=== PATIENT | female | born 1980 | race Caucasian/White ===

== ENCOUNTER 2019-07-16 08:40 | Inpatient (IN) | payer SELFPAY ==
[2019-07-16] VITALS (10 sets, daily range): BP systolic 113–129; BP diastolic 81–91; PULSE 70–105; RESP 16–20; TEMP 36.5–37.1; O2SAT 96–100; BMI 24.7
--- NOTE | 2019-07-16 09:25 | US_ITS ---
WS: [id number] Pelvic ultrasound, 07/16/2019 Clinical Data: pelvic pain Comparison: None. Findings: The uterus measures 8.0 cm x 4.5 cm x 3.7 cm. The endometrium is 0.7 cm. No intrauterine or abnormal intrauterine mass is seen. The left ovary measures 2.2 cm x 1.5 cm x 1.6 cm with no cysts or masses. The right ovary measures 2.3 cm x 1.2 cm x 1.3 cm with no cysts or masses. US/US pelvic with transvaginal Impression: Negative pelvic ultrasound.
--- NOTE | 2019-07-16 09:28 | CTR_ITS ---
PROCEDURE INFORMATION: Exam: CT Abdomen And Pelvis With Contrast Exam date and time: 07/16/2019 9:31 AM Age: 38 years old Clinical indication: Right lower quadrant pain TECHNIQUE: Imaging protocol: Computed tomography of the abdomen and pelvis with intravenous contrast. Radiation optimization: All CT scans at this facility use at least one of these dose optimization techniques: automated exposure control; mA and/or kV adjustment per patient size (includes targeted exams where dose is matched to clinical indication); or iterative reconstruction. Contrast material: OMNI 300; Contrast volume: 95 ml; Contrast route: 20G; COMPARISON: US pelvic with transvaginal 07/16/2019 10:00 AM RADIATION DOSE METRICS: Total DLP: 585.94 mGy-cm FINDINGS: Lungs: Minimal bilateral dependent atelectasis. Liver: There is fatty change involving the liver parenchyma. Gallbladder and bile ducts: The gallbladder is contracted. No calcified gallstones. No biliary ductal dilatation. Pancreas: No pancreatic mass. No peripancreatic inflammation. No pancreatic ductal dilation. Spleen: The spleen is homogeneous and is not enlarged. Adrenals: No adrenal mass. Kidneys and ureters: No hydronephrosis, nephrolithiasis, or renal mass. There is bilateral renal scarring. Stomach and bowel: No bowel obstruction, colitis or diverticulitis. Appendix: The appendix has a normal caliber with no wall thickening. No periappendiceal stranding. Intraperitoneal space: No ascites or pneumoperitoneum. Vasculature: The abdominal aorta and iliofemoral arteries are normal. The mesenteric arteries are patent. The mesenteric, portal, and hepatic veins are patent. There is a duplicated inferior vena cava. There are enlarged collateral veins in the splenic hilum, likely related to increased flow on the left side related to the duplicated inferior vena cava. Lymph nodes: No pathologically enlarged lymph nodes. Bladder: The bladder is not distended. There is concentric bladder wall thickening which can be due to lack of distension or a cystitis. Reproductive: Unremarkable as visualized. Bones/joints: No acute osseous abnormality. Soft tissues: No femoral or inguinal hernia. CT/CT abdomen pelvis w con* [id number] IMPRESSION: 1. Normal appendix. 2. Fatty liver. 3. Duplicated inferior vena cava. 4. Bladder wall thickening. Correlate with the urinalysis. Radiation Dose CTDIVOL = (mGy): DLP = 585.94 (mGy-cm)
[2019-07-16 09:40] LABS: Basophils # 0.1 10^3/uL (0.0-0.1); Basophils % 0.4 %; Eosinophils # 0.3 10^3/uL (0.0-0.8); Eosinophils % 1.7 %; Hematocrit 39.4 % (37.0-47.0); Hemoglobin 12.5 g/dL (11.5-15.3); Lymphocytes # 2.1 10^3/uL (0.8-4.8); Lymphocytes % 13.4 %; Mean Corpuscular HGB Conc 31.7 g/dL (30.0-36.0); Mean Corpuscular Hemoglobin 30.8 pg (28.0-34.0); Mean Platelet Volume 9.4 fL (7.4-10.4); Monocytes # 1.2 10^3/uL (0.2-0.9); Monocytes % 7.6 %; Neutrophils # 11.7 10^3/uL (1.8-7.7); Neutrophils % 76.6 %; Nucleated Red Blood Cells % 0 %; Platelet Count 325 10^3/cmm (130-400); Red Blood Count 4.06 10^6/uL (4.1-5.3); Red Cell Distribution Width 13.9 % (12.1-15.1); White Blood Count 15.3 10^3/uL (4.0-10.0)
[2019-07-16 09:44] LABS: HCG Qualitative Urine. Negative (Negative)
[2019-07-16 09:46] LABS: Add Urine Microscopic? YES; Bilirubin Urine Neg (NEGATIVE); Blood Urine Neg (Negative); Glucose Urine UA Norm (Normal); Ketones Urine Negative (Negative); Leukocyte Esterase Urine 2+ (Negative); Nitrate Urine Positive (Negative); Protein Urine Neg (Negative); Specific Gravity, Urine 1.015 (1.005-1.030); Urine Appearance Cloudy (CLEAR); Urine Color Yellow (Yellow); Urobilinogen Urine Norm (Negative)
[2019-07-16] MEDS: acetaminophen 500 mg Tablet 1000 MG PO (09:51)
[2019-07-16 09:57] LABS: Alanine Aminotransferase 125 U/L (0-33); Albumin Level 3.7 g/dL (3.5-5.2); Alkaline Phosphatase 105 IU/L (35-105); Anion Gap 17.1 (5-19); Aspartate Amino Transferase 97 U/L (0-32); Blood Urea Nitrogen 9 mg/dL (6-20); Calcium 9.2 mg/dL (8.5-10.5); Carbon Dioxide 22 mmol/L (22-29); Chloride 105 mmol/L (98-107); Creatinine Clr Calc Pharmacy 85.5578; Glomerular Filtration Rate 80.3 mL/min (90-130); Glucose 87 mg/dL (65-115); Lipase 19 U/L (13-60); Osmolality Calculated 285 mOsm/kg (285-295); Potassium 4.1 mmol/L (3.5-5.1); Sodium 140 mmol/L (136-145); Total Bilirubin 0.5 mg/dL (0.15-1.2); Total Protein 7.7 g/dL (6.6-8.7)
[2019-07-16 10:03] LABS: Add Urine Culture? Yes; Bacteria Urine 2+; Mucus Urine TRACE; Squamous Epithelial Cell Urine 0-4 (0-5); WBC Urine 80-100 /hpf (0-5)
[2019-07-16] MEDS: iohexol 300 mg/mL 100 mL Btl IV (10:40)
[2019-07-16] MEDS: morphine 4 mg/mL SDV 1 mL 2 MG IVP ×4 (11:00→20:57)
[2019-07-16] MEDS: ondansetron 2 mg/ML SDV 2 mL 4 MG IVP (11:00)
--- NOTE | 2019-07-16 11:01 | W.ED.ABDPA2 ---
HPI - Abdominal Pain General: Chief Complaint: Abdominal Pain Stated Complaint: lower abd pain Time Seen by Provider: 07/16/19 08:49 History of Present Illness: HPI narrative: 38-year-old female comes in complaining of pelvic pain. 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 Patient was offered empiric therapy at the time she was seen but left AMA fortunately the ER physician treated her with doxycycline as an outpatient since she was refusing the appropriate empiric therapies she had also had a bronchitis upper respiratory symptoms at that time. She recalls being treated for this but states she did get a phone call that the GC and chlamydia were negative. She denies any sexual activity since that time. She does mention having a little bit of vaginal discharge this time as well as some dysuria. She denies any flank pain denies any hematuria. She states her last period began 9 days ago and ceased 2 days ago and is relatively normal for her. MD elicited complaint: other (Pelvic pain on the right.) Pertinent past history: other (Treated for syphilis within the last 6 months declined empiric treatment for PID at that time) Onset (ago): day(s) Pain Consistency: constant Location: Pelvis (Right side) Severity: severe Quality: stabbing and sharp Exacerbating factors: movement Relieving factors: rest Context: other (Recently treated for syphilis refused empiric PID treatment) Associated Symptoms: Reports anorexia, bloating, GI cramping, dysuria, nausea and poor appetite; Denies change in bowel habits, change in stool character, chills, coffee ground emesis, constipation, diarrhea, dyspepsia, fever(s), hematochezia, hematuria, hematemesis, fecal incontinence, loose stools, melena and vomiting Treatments prior to arrival: other (Tylenol) Related Data: Date of Last Menstrual Period: 07/09/19 Review of Systems Const: Denies: fever(s), chills, body aches, change in appetite, fatigue or malaise ENMT: Denies: throat pain, ear or mastoid pain, nasal discharge or nasal congestion Card: Denies: chest pain, edema, dyspnea on exertion or orthopnea Resp: Denies: dyspnea, productive cough or non-productive cough GI: Reports: nausea, bloating and GI cramping; Denies: vomiting, hematemesis, coffee ground emesis, diarrhea, constipation, fecal incontinence, change in bowel habits, change in stool character, hematochezia or melena : Reports: dysuria; Denies: hematuria Skin/Breast: Denies: rash or pruritus PFSH ED PFSH: Medical History Cervical spine fracture Syphilis Surgical History Hx of tubal ligation S/P ORIF (open reduction internal fixation) fracture for comminuted R distal radius fx; done in 04/2014 Social History (Updated 07/16/19 @ 21:01 by Melissa Wick MD) Smoking and tobacco status: current every day smoker cigarettes Packs smoked per day: 0.75 Alcohol intake: current Alcohol intake frequency: holidays/special occasions only Substance/Drug Use: current Substance/Drug use type: Amphetamines Sexually active: Yes Female Reproductive History: Date of last menstrual period: 07/09/19 Physical Exam Const: COMMON NORMALS: no acute distress GENERAL APPEARANCE: cooperative and comfortable ORIENTATION/CONSCIOUSNESS: Yes awake, Yes oriented to person, Yes oriented to place and Yes oriented to time HENMT: COMMON NORMALS: normocephalic, atraumatic, hearing grossly normal bilaterally and external ears normal HEAD & SCALP: normocephalic and atraumatic EXTERNAL EAR: Yes external ears normal Eye: COMMON NORMALS: Equal, round and reactive pupils present, EOMs intact bilaterally, conjunctivae normal and no scleral icterus CONJUNCTIVA: Yes conjunctivae normal PUPIL: Yes Equal, round and reactive pupils present Neck/C-Spine: COMMON NORMALS: full ROM, no lymphadenopathy, supple and no JVD Lymph: LYMPHATIC: no lymphadenopathy noted and no lymphedema noted Resp: COMMON NORMALS: normal respiratory effort, No retractions, No use of accessory muscles and clear to auscultation bilaterally AUSCULTATION: clear to auscultation bilaterally Cardio: COMMON NORMALS: no JVD, regular rate, regular rhythm and No murmurs present (Cardio) RATE: regular rate RHYTHM: regular rhythm GI: COMMON NORMALS: Soft to palpation and No hepatosplenomegaly present AUSCULTATION: Yes normoactive bowel sounds PALPATION: Yes Soft to palpation, No Tenderness to palpation present (GI), No Guarding due to palpation present (GI) and Yes No hepatosplenomegaly present : COMMON NORMALS: Yes no CVA tenderness BLADDER/KIDNEY EXAM: Yes no CVA tenderness EXTERNAL FEMALE EXAM: Yes normal appearance of the urethra SPECULUM EXAM - CERVIX: Yes Cervical os closed, No Cervical bleeding, Yes mucoid cervix and Yes Cervical tenderness present BIMANUAL EXAM - VAGINA & UTERUS: Yes Cervical tenderness present BIMANUAL EXAM - ADNEXA, OTHER: Yes tender Back/Pelvis: COMMON NORMALS: no CVA tenderness Extremity: COMMON NORMALS: normal to inspection, capillary refill normal, no clubbing, cyanosis or edema, no calf tenderness and no pedal edema Neuro: SENSORIUM/ORIENTATION: Yes oriented to person, Yes oriented to place and Yes oriented to time Skin: COMMON NORMALS: no rashes or lesions noted GENERAL SKIN EXAM: no rashes or lesions noted Course Vital Signs: Vital signs: Vital Signs Temperature 98.3 F 07/18/19 10:52 Pulse Rate 69 07/18/19 10:52 Respiratory Rate 18 07/18/19 10:52 Blood Pressure 113/78 07/18/19 10:52 Pulse Oximetry 98 07/18/19 10:52 MDM - Abdominal Pain MDM Narrative: Medical decision making narrative: Initially patient was admitted Dr. Chaparro. He was unable to care for the patient transferred to Dr. Castroui I called and discussed patient with Dr. Keller and recommended that she consult Geoff because of the presenting problem she will get Dr. Abarca and see the patient later today. Lab Data: Labs: Lab Results 07/16/19 07/16/19 07/16/19 Range/Units 09:34 09:34 09:35 WBC 15.3 H (4.0-10.0) 10^3/ uL RBC 4.06 L (4.1-5.3) 10^6/u L Hgb 12.5 (11.5-15.3) g/dL Hct 39.4 (37.0-47.0) % MCV 97.0 (81-99) fL MCH 30.8 (28.0-34.0) pg MCHC 31.7 (30.0-36.0) g/dL RDW 13.9 (12.1-15.1) % Plt Count 325 (130-400) 10^3/c mm MPV 9.4 (7.4-10.4) fL Neut % (Auto) 76.6 % Lymph % (Auto) 13.4 % [place] % (Auto) 7.6 % Eos % (Auto) 1.7 % Baso % (Auto) 0.4 % Neut # (Auto) 11.7 H (1.8-7.7) 10^3/u L Lymph # (Auto) 2.1 (0.8-4.8) 10^3/u L [place] # (Auto) 1.2 H (0.2-0.9) 10^3/u L Eos # (Auto) 0.3 (0.0-0.8) 10^3/u L Baso # (Auto) 0.1 (0.0-0.1) 10^3/u L Nucleated RBC % (a uto) 0 % Nucleated RBCs # 0.0 /100WBC Sodium 140 (136-145) mmol/L Potassium 4.1 (3.5-5.1) mmol/L Chloride 105 (98-107) mmol/L Carbon Dioxide 22 (22-29) mmol/L Anion Gap 17.1 (5-19) BUN 9 (6-20) mg/dL Creatinine 0.8 (0.5-0.9) mg/dL GFR Calculation 80.3 L (90-130) mL/min Glucose 87 (65-115) mg/dL Calculated Osmolal ity 285 (285-295) mOsm/k g Calcium 9.2 (8.5-10.5) mg/dL Total Bilirubin 0.5 (0.15-1.2) mg/dL AST 97 H (0-32) U/L ALT 125 H (0-33) U/L Alkaline Phosphata se 105 (35-105) IU/L Total Protein 7.7 (6.6-8.7) g/dL Albumin 3.7 (3.5-5.2) g/dL Globulin 4.0 (1.3-4.6) g/dL Lipase 19 (13-60) U/L HCG, Qual Negative (Negative) Urine Color (Yellow) Urine Appearance (CLEAR) Urine pH (5-7) Ur Specific Gravit y (1.005-1.030) Urine Protein (Negative) Urine Glucose (UA) (Normal) Urine Ketones (Negative) Urine Blood (Negative) Urine Nitrate (Negative) Urine Bilirubin (NEGATIVE) Urine Urobilinogen (Negative) mg/dL Ur Leukocyte Payton ase (Negative) Urine RBC (0-2) /hpf Urine WBC (0-5) /hpf Ur Squamous Epith Cells (0-5) Urine Bacteria (NONE) Urine Mucus Urine Opiates Scre en (Negative) ng/mL Ur Barbiturates Sc reen (Negative) ng/mL Ur Phencyclidine S crn (Negative) ng/mL Ur Amphetamines Sc reen (Negative) ng/mL U Benzodiazepines Scrn (Negative) ng/mL Urine Cocaine Scre en (Negative) ng/mL U Marijuana (THC) Screen (Negative) ng/mL 07/16/19 07/16/19 Range/Units 09:35 09:35 WBC (4.0-10.0) 10^3/ uL RBC (4.1-5.3) 10^6/u L Hgb (11.5-15.3) g/dL Hct (37.0-47.0) % MCV (81-99) fL MCH (28.0-34.0) pg MCHC (30.0-36.0) g/dL RDW (12.1-15.1) % Plt Count (130-400) 10^3/c mm MPV (7.4-10.4) fL Neut % (Auto) % Lymph % (Auto) % [place] % (Auto) % Eos % (Auto) % Baso % (Auto) % Neut # (Auto) (1.8-7.7) 10^3/u L Lymph # (Auto) (0.8-4.8) 10^3/u L [place] # (Auto) (0.2-0.9) 10^3/u L Eos # (Auto) (0.0-0.8) 10^3/u L Baso # (Auto) (0.0-0.1) 10^3/u L Nucleated RBC % (a uto) % Nucleated RBCs # /100WBC Sodium (136-145) mmol/L Potassium (3.5-5.1) mmol/L Chloride (98-107) mmol/L Carbon Dioxide (22-29) mmol/L Anion Gap (5-19) BUN (6-20) mg/dL Creatinine (0.5-0.9) mg/dL GFR Calculation (90-130) mL/min Glucose (65-115) mg/dL Calculated Osmolal ity (285-295) mOsm/k g Calcium (8.5-10.5) mg/dL Total Bilirubin (0.15-1.2) mg/dL AST (0-32) U/L ALT (0-33) U/L Alkaline Phosphata se (35-105) IU/L Total Protein (6.6-8.7) g/dL Albumin (3.5-5.2) g/dL Globulin (1.3-4.6) g/dL Lipase (13-60) U/L HCG, Qual (Negative) Urine Color Yellow (Yellow) Urine Appearance Cloudy (CLEAR) Urine pH 5.0 (5-7) Ur Specific Gravit y 1.015 (1.005-1.030) Urine Protein Neg (Negative) Urine Glucose (UA) Norm (Normal) Urine Ketones Negative (Negative) Urine Blood Neg (Negative) Urine Nitrate Positive H (Negative) Urine Bilirubin Neg (NEGATIVE) Urine Urobilinogen Norm (Negative) mg/dL Ur Leukocyte Payton ase 2+ H (Negative) Urine RBC None (0-2) /hpf Urine WBC 80-100 H (0-5) /hpf Ur Squamous Epith Cells 0-4 H (0-5) Urine Bacteria 2+ H (NONE) Urine Mucus Trace Urine Opiates Scre en Negative (Negative) ng/mL Ur Barbiturates Sc reen Negative (Negative) ng/mL Ur Phencyclidine S crn Negative (Negative) ng/mL Ur Amphetamines Sc reen Positive H (Negative) ng/mL U Benzodiazepines Scrn Negative (Negative) ng/mL Urine Cocaine Scre en Negative (Negative) ng/mL U Marijuana (THC) Screen Negative (Negative) ng/mL Discharge Plan Discharge Patient Disposition: Admitted As Inpatient Admit Provider: Danilo Chaparro Clinical Impression: Right tubo-ovarian abscess Condition: Stable Interventions: ED Discharge Assessment Last Done: 05/18/20 12:07 ED Charges Last Done: 07/16/19 12:12 Discharge Date/Time: 07/16/19 12:39 Coding Level of Care Code ED Parts Department Supervisor for Chg Fwd Exam Comprehensive
[2019-07-16] MEDS: ketorolac 30 mg/mL INJ IVP (11:06)
[2019-07-16] MEDS: ampicillin-sulbactam 3 GM in sodium chloride 0.9% (plus) 50 ML IV ×2 (11:20→21:29)
[2019-07-16] MEDS: doxycycline 100 MG in sodium chloride 0.9% (plus) 100 ML IV (11:55)
[2019-07-16] MEDS: morphine 4 mg/mL SDV 1 mL IVP (12:20)
[2019-07-16] MEDS: nicotine 21 mg Patch 1 PATCH TRANSDERMA (14:35)
--- NOTE | 2019-07-16 16:41 | P.CONIM_ITS ---
Providers/Reason For Consult Consulting Physican/Specialty*: Melissa Wick MD, Hospitalist Reason for Consult*: Medical management of possible illicit substance withdrawal Requesting Marjcian: Dr. Chpaarro Attending Physician: Danilo Chaparro MD History of Present Illness History of Present Illness Justin Conde is a 38 year old female with PMHx of Chronic smoking, noted hx of illicit substance abuse (THC, methamphetamines) presents to the ER with complaints of lower abdominal pressure, chills, dysuria, profuse vaginal discharge x 1 day. She reports having completed her last menstrual period approximately 2 days ago and has not had hematuria. She denies being sexually active over the past 6 months since being treated for syphilis in January 2019. From review of medical record, patient was seen in ED on 02/20/19 during which time she was found to be positive for RPR and genital lesions that appeared to be consistent with chancroid, treated with pen G. She was also prophylactically treated with azithromycin for chlamydia. She declined ceftriaxone for gonorrhea so was treated with doxycycline for dual coverage of bronchitis and gonorrhea. Patient left AMA from the ER and it seems that she did not follow-up. She denies having had any further genital lesions or concerning symptoms following her treatment, reports having completed the full 10-day course of doxycycline. She admits to being typically sexually active with female partners but approximately 6 months ago, was sexually active with both a female and male partner. She denies current illicit drug use or alcohol use. Work-up in the ER indicates significant leukocytosis with a white count of 15.3, normal hemoglobin at 12.5, normal chemistry, beta-hCG negative, elevated AST, ALT, pelvic ultrasound is reported as negative, CT of the abdomen and pelvis shows a fatty liver with bladder wall thickening. Urinalysis is indicative of infection. She received dose of doxycycline, ceftriaxone and Unasyn. She appears quite restless and uncomfortable during my assessment on her arrival to the floor. H as received morphine for pain which she states does not last longer than 1 to 2 hours. Review of Systems Const: Reports: chills and malaise ENMT: Reports: dry mouth Card: Denies: chest pain, swelling of feet/ankles or lightheadedness Resp: Denies: dyspnea GI: Reports: nausea; Denies: abdominal pain, vomiting, hematemesis or hematochezia : Reports: dysuria, vaginal odor, vaginal discharge (profuse, yellow, thick) and pelvic pain; Denies: difficulty voiding Musc: Denies: back pain Skin/Breast: Denies: rash Neuro: Denies: numbness in extremities or weakness in extremities Psych: Denies: anxiety Meds/Allergies Home Medications and Allergies Home Medications Medication Instructions Recorded Confirmed Last Taken Type ibuprofen 600 mg PO PRN 07/16/19 07/16/19 07/15/19 15:30 History multivitamin [Multiple Vitamins] 1 tab PO DAILY 07/16/19 07/16/19 07/15/19 History Allergies Allergy/AdvReac Type Severity Reaction Status Date / Time No Known Allergies Allergy Verified 07/16/19 09:00 Current Medications Current Medications Generic Name Dose Route Start Last Admin Trade Name Freq PRN Reason Stop Dose Admin Morphine Sulfate 2 mg 07/16/19 12:54 07/16/19 16:20 Morphine IVP 2 mg Q4H PRN Administration SEVERE PAIN Nicotine 1 patch 07/16/19 14:29 07/16/19 14:35 Nicoderm 21 Mg Patch TRANSDERMA 1 patch DAILY CHINO Administration PFSH Acute PFSH: Medical History Cervical spine fracture Syphilis Surgical History Hx of tubal ligation S/P ORIF (open reduction internal fixation) fracture for comminuted R distal radius fx; done in 04/2014 Social History (Updated 07/16/19 @ 21:01 by Melissa Wick MD) Smoking and tobacco status: current every day smoker cigarettes Packs smoked per day: 0.75 Alcohol intake: current Alcohol intake frequency: holidays/special occasions only Substance/Drug Use: current Substance/Drug use type: Amphetamines Sexually active: Yes Female Reproductive History: Date of last menstrual period: 07/11/19 Vitals/I&O/Wt Last Vital Signs Temp 98.7 F 07/16/19 08:50 Pulse 78 07/16/19 12:07 Resp 20 H 07/16/19 16:20 BP 129/91 07/16/19 12:07 Pulse Ox 100 07/16/19 12:07 07/16/19 07/16/19 07/16/19 06:59 14:59 22:59 Intake Total 150 / 150 Balance 150 / 150 Weight last 48 hrs Weight 63.503 kg Physical Exam Const: COMMON NORMALS: no acute distress and patient oriented x3 GENERAL APPEARANCE: cooperative and anxious; not comfortable ORIENTATION/CONSCIOUSNESS: Yes awake HENMT: COMMON NORMALS: normocephalic, atraumatic, hearing grossly normal bilaterally and moist oral mucous membranes HEAD & SCALP: normocephalic and atraumatic Eye: COMMON NORMALS: Equal, round and reactive pupils present, EOMs intact bilaterally and conjunctivae normal CONJUNCTIVA: Yes conjunctivae normal PUPIL: Yes Equal, round and reactive pupils present Neck/C-Spine: COMMON NORMALS: full ROM GENERAL: Yes normal visual inspection and Yes trachea midline Resp: COMMON NORMALS: normal respiratory effort, No retractions, No use of accessory muscles and clear to auscultation bilaterally EFFORT & INSPECTION: Yes able to speak in complete sentences, Yes symmetric chest movement and No tachypneic AUSCULTATION: clear to auscultation bilaterally Cardio: COMMON NORMALS: regular rate, regular rhythm, S1 normal heart sound present, S2 normal heart sound present and No murmurs present (Cardio) RATE: regular rate RHYTHM: regular rhythm HEART SOUNDS: S1 normal heart sound present and S2 normal heart sound present GI: COMMON NORMALS: Normal to inspection, nondistended, normoactive bowel sounds present, Soft to palpation and non-tender INSPECTION: Yes central obesity PALPATION: Yes Soft to palpation and Yes Tenderness to palpation present (GI) Details: LLQ and RLQ : COMMON NORMALS: Yes no CVA tenderness BLADDER/KIDNEY EXAM: Yes no CVA tenderness Back/Pelvis: COMMON NORMALS: no CVA tenderness Extremity: COMMON NORMALS: normal to inspection, full ROM, no clubbing, cyanosis or edema and no pedal edema Neuro: COMMON NORMALS: patient oriented x3, moves all extremities, no focal motor deficits, no sensory deficits noted and gait normal Psych: COMMON NORMALS: mental status grossly normal, Normal thought process present, cooperative, normal affect and speech normal SPEECH: Yes normal sp eech THOUGHT PROCESS: Normal thought process present Skin: COMMON NORMALS: no rashes or lesions noted, no jaundice, no petechiae and no mottling GENERAL SKIN EXAM: no rashes or lesions noted Data Micro: Micro: Microbiology 07/16/19 09:35 Chlamydia trachoma tis (CLAY) - Final Urine Random Neisseria gonorrho eae (CLAY) - Final Trichomonas vagina lis (CLAY - Final 07/16/19 10:52 SHABNAM Preparation - Final Other Source 07/16/19 09:40 Blood Culture - Pr eliminary Blood SPECIMEN [facility] 07/16/19 09:34 Blood Culture - Pr eliminary Blood SPECIMEN [facility] A&P Assessment and plan (1) Pelvic inflammatory disease: -noted to be positive for N. gonorrhea; negative for Chlamydia and Trichomonas -SHABNAM prep negative -received doxycycline, Unasyn and Ceftriaxone doses in ED; will continue doxycycline (no IV available per pharmacy) and Unasyn -noted leukocytosis, trend WBC -pain control as needed -imaging noted including pelvic US, CT A/P -clinical suspicion for possible tubo-ovarian abscess if suboptimal response to IV antibiotics -b-hCG negative, LMP-07/11/19 -female sexual partners though denies recent sexual activity x 5 months. ; safe sexual practices recommended -[facility] Dr. Chaparro is attending Status: Acute (2) Gonorrhea: -NG + -treatment as noted above Status: Acute (3) UTI (urinary tract infection): -UA indicative of infection -f/u blood and urine cx -on IV antibiotics Status: Acute Qualifiers: Urinary tract infection type: acute cystitis Hematuria presence: without hematuria Qualified Code(s): N30.00 - Acute cystitis without hematuria (4) Syphilis: -previously treated for RPR with noted chancroid in 01/2019 Status: Chronic Additional A&P Information -noted to be hep C + in 01/2019; recheck this with quant -noted LFTs elevation; continue to trend -Chronic smoker; 3/4 PPD; nicotine replacement therapy -prior documentation of THC and methamphetamines abuse; denies recent use, UDS positive for amphetamines, monitor for withdrawal -regular diet as tolerated -low risk for DVT, encourage ambulation as tolerated -Dispo: home -Code status: FULL code -thank you for this consult, will continue to follow along with you. Consult Attestations Medical Necessity Statement: Justin Conde's hospital stay will require greater than 2 midnights for management of pelvic inflammatory disease with concern for possible tubo-ovarian abscess requiring aggressive IV antibiotics. Time Spent in Patient Care: Greater than 35 minutes (>than 50% of time spent in counselling and/or direct pt care on unit) . Coding Level of Care Code Acute [employer] Inspector for Chg Fwd Exam Comprehensive Diagnoses Pelvic inflammatory disease N73.9 Gonorrhea A54.9 UTI (urinary tract infection) N30.00 Urinary tract infection type: acute cystitis Hematuria presence: without hematuria Syphilis A53.9
--- NOTE | 2019-07-16 17:40 | PM.OBGYHP ---
Providers/Chief Complaint Admitting Physician: Danilo Chaparro MD Chief Complaint: lower abd pain HPI SR COMMUNITY MANAGER History of Present Illness Justin Conde is a 38 year old female came into the ER complaining of pelvic pain. 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 Patient was offered empiric therapy at the time she was seen but left AMA fortunately the ER physician treated her with doxycycline as an outpatient since she was refusing the appropriate empiric therapies she had also had a bronchitis upper respiratory symptoms at that time. She recalls being treated for this but states she did get a phone call that the GC and chlamydia were negative. She denies any sexual activity since that time and that she has not been with any man since she is [place]. She is however positive for GC. Present Details Date of Last Menstrual Period: 07/11/19 Calculated Date of Delivery: 04/16/20 Gestational Age Based on Last Menstrual Period: 2 Review of Systems Const: Denies: fever(s), chills, body aches, change in appetite, fatigue or malaise ENMT: Denies: throat pain, ear or mastoid pain, nasal discharge or nasal congestion Card: Denies: chest pain, edema, dyspnea on exertion or orthopnea Resp: Denies: dyspnea, productive cough or non-productive cough GI: Reports: nausea, bloating and GI cramping; Denies: vomiting, hematemesis, coffee ground emesis, diarrhea, constipation, fecal incontinence, change in bowel habits, change in stool character, hematochezia or melena : Reports: dysuria; Denies: hematuria Skin/Breast: Denies: rash or pruritus Medications/Allergies Home Medications Medication Instructions Recorded Confirmed Last Taken Type Multiple Vitamins 1 tab PO DAILY 07/16/19 07/16/19 07/15/19 History ibuprofen 600 mg PO PRN 07/16/19 07/16/19 07/15/19 15:30 History doxycycline monohydrate 100 mg PO BID 14 Days #28 tab 07/18/19 Unknown Rx hydrocodone-acetaminophen 1 tab PO Q4H PRN #30 tab 07/18/19 Unknown Rx metronidazole 500 mg PO BID 14 Days #28 tab 07/18/19 Unknown Rx sennosides-docusate sodium 1 tab PO BID PRN 30 Days #60 tab 07/18/19 Unknown Rx Allergies Allergy/AdvReac Type Severity Reaction Status Date / Time No Known Allergies Allergy Verified 07/16/19 09:00 PFSH SR COMMUNITY MANAGER PFSH: Medical History Cervical spine fracture Syphilis Surgical History Hx of tubal ligation S/P ORIF (open reduction internal fixation) fracture for comminuted R distal radius fx; done in 04/2014 Social History (Updated 07/16/19 @ 21:01 by Melissa Wick MD) Smoking and tobacco status: current every day smoker cigarettes Packs smoked per day: 0.75 Alcohol intake: current Alcohol intake frequency: holidays/special occasions only Substance/Drug Use: current Substance/Drug use type: Amphetamines Sexually active: Yes Vitals/I&O/Wt Last Vital Signs Temp 97.7 F 07/16/19 16:00 Pulse 70 07/16/19 16:00 Resp 20 H 07/16/19 16:20 BP 120/81 07/16/19 16:00 Pulse Ox 100 07/16/19 16:00 07/16/19 07/16/19 07/16/19 06:59 14:59 22:59 Intake Total 150 / 150 Balance 150 / 150 Weight last 48 hrs Weight 63.503 kg Physical Exam Const: COMMON NORMALS: no acute distress and patient oriented x3 GENERAL APPEARANCE: cooperative and comfortable ORIENTATION/CONSCIOUSNESS: Yes awake HENMT: COMMON NORMALS: normocephalic, atraumatic, hearing grossly normal bilaterally and moist oral mucous membranes HEAD & SCALP: normocephalic and atraumatic Eye: COMMON NORMALS: Equal, round and reactive pupils present, EOMs intact bilaterally and conjunctivae normal CONJUNCTIVA: Yes conjunctivae normal PUPIL: Yes Equal, round and reactive pupils present Neck/C-Spine: COMMON NORMALS: full ROM GENERAL: Yes normal visual inspection and Yes trachea midline Resp: COMMON NORMALS: normal respiratory effort, No retractions, No use of accessory muscles and clear to auscultation bilaterally EFFORT & INSPECTION: Yes able to speak in complete sentences, Yes symmetric chest movement and No tachypneic AUSCULTATION: clear to auscultation bilaterally Cardio: COMMON NORMALS: regular rate, regular rhythm, S1 normal heart sound present, S2 normal heart sound present and No murmurs present (Cardio) RATE: regular rate RHYTHM: regular rhythm HEART SOUNDS: S1 normal heart sound present and S2 normal heart sound present GI: COMMON NORMALS: Normal to inspection, nondistended, normoactive bowel sounds present, Soft to palpation and non-tender PALPATION: Yes Soft to palpation Extremity: COMMON NORMALS: normal to inspection, full ROM and no clubbing, cyanosis or edema; negative for no pedal edema Neuro: COMMON NORMALS: patient oriented x3, moves all extremities, no focal motor deficits, no sensory deficits noted and gait normal Psych: COMMON NORMALS: mental status grossly normal, Normal thought process present, cooperative, normal affect and speech normal SPEECH: Yes normal speech THOUGHT PROCESS: Normal thought process present Skin: COMMON NORMALS: no rashes or lesions noted, no jaundice, no petechiae and no mottling GENERAL SKIN EXAM: no rashes or lesions noted Data : 07/18/19 14:53 07/18/19 14:53 Micro: Microbiology 07/16/19 09:35 Chlamydia trachomatis (CLAY) - Final Urine Random Neisseria gonorrhoeae (CLAY) - Final Trichomonas vaginalis (CLAY - Final 07/16/19 10:52 SHABNAM Preparation - Final Other Source 07/16/19 09:40 Blood Culture - Preliminary Blood SPECIMEN COLLECTED 07/16/19 09:34 Blood Culture - Preliminary Blood SPECIMEN COLLECTED A&P Assessment and plan (1) Pelvic inflammatory disease: Patient was counseled regarding PID and all treatment modalities. He was counseled regarding compliance with IV medication for effective treatment. He was also counseled regarding the pathogen most likely responsible for PID is gonorrhea. She referred how can that be possible when she is [place] and she has not had intercourse with a man for 6 months. She was informed she possibly had been having infection for that long, and STDs are also transferable in [place] relationships. 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
[2019-07-16 17:49] LABS: Amphetamines Screen Urine Positive (Negative); Barbiturates Screen Urine Negative (Negative); Benzodiazepines Screen Urine Negative (Negative); Cocaine Screen Urine Negative (Negative); Opiate Screen Urine Negative (Negative); PCP Screen Urine Negative (Negative); THC Screen Urine Negative (Negative)
[2019-07-16] MEDS: doxycycline 100 mg Tablet PO (21:28)
[2019-07-17] VITALS (9 sets, daily range): BP systolic 107–116; BP diastolic 71–79; PULSE 58–79; RESP 16–24; TEMP 36.7–37.4; O2SAT 58–99
[2019-07-17] MEDS: ampicillin-sulbactam 3 GM in sodium chloride 0.9% (plus) 50 ML IV ×4 (02:09→20:57)
[2019-07-17] MEDS: morphine 4 mg/mL SDV 1 mL 2 MG IVP ×3 (05:22→13:27)
[2019-07-17 06:03] LABS: Basophils % 0.4 %; Eosinophils # 0.3 10^3/uL (0.0-0.8); Eosinophils % 2.8 %; Hematocrit 40.8 % (37.0-47.0); Lymphocytes % 18.9 %; Mean Corpuscular HGB Conc 31.9 g/dL (30.0-36.0); Mean Corpuscular Hemoglobin 31.5 pg (28.0-34.0); Mean Corpuscular Volume 98.8 fL (81-99); Mean Platelet Volume 9.8 fL (7.4-10.4); Monocytes # 0.6 10^3/uL (0.2-0.9); Monocytes % 6.1 %; Neutrophils # 7.5 10^3/uL (1.8-7.7); Neutrophils % 71.3 %; Nucleated Red Blood Cells % 0 %; Platelet Count 325 10^3/cmm (130-400); Red Blood Count 4.13 10^6/uL (4.1-5.3); Red Cell Distribution Width 13.7 % (12.1-15.1); White Blood Count 10.5 10^3/uL (4.0-10.0)
[2019-07-17 06:19] LABS: Alanine Aminotransferase 102 U/L (0-33); Albumin Level 3.3 g/dL (3.5-5.2); Alkaline Phosphatase 90 IU/L (35-105); Anion Gap 15.9 (5-19); Aspartate Amino Transferase 73 U/L (0-32); Blood Urea Nitrogen 12 mg/dL (6-20); Calcium 8.9 mg/dL (8.5-10.5); Carbon Dioxide 21 mmol/L (22-29); Chloride 104 mmol/L (98-107); Creatinine Clr Calc Pharmacy 85.5578; Globulin 3.3 g/dL (1.3-4.6); Glomerular Filtration Rate 80.3 mL/min (90-130); Glucose 104 mg/dL (65-115); Osmolality Calculated 278 mOsm/kg (285-295); Potassium 4.9 mmol/L (3.5-5.1); Sodium 136 mmol/L (136-145); Total Bilirubin 0.5 mg/dL (0.15-1.2); Total Protein 6.6 g/dL (6.6-8.7)
[2019-07-17 07:02] LABS: Hepatitis C Virus Antibody Reactive (Nonreactive)
[2019-07-17] MEDS: doxycycline 100 mg Tablet PO ×2 (09:08→18:31)
[2019-07-17] MEDS: nicotine 21 mg Patch 1 PATCH TRANSDERMA (09:09)
--- NOTE | 2019-07-17 11:34 | PC.CHAP ---
Pastoral Care Encounter/Spiritual Assessment Type of Contact [] Declined business writer visit [] Patient/Family/Request visit [] Outpatient visit [] Follow-up visit [] Physician referral [] Code/Alert [x] Routine visit [] Staff referral [] Actively dying [] Patient sleeping [] Family support [] [] Out of room [] Palliative care [] [x] Receiving care in room [] Pre-surgical visit [] Trauma [] Long length of stay [] ICU visit [] Other: Relational/Emotional Strength [x] Patient feels connected with others/family/visitors/staff [] Distress [] Loneliness/isolation [] Abandonment Spirituality of Patient [x] Person of Mahnaz [] Attends Restorationist of their Mahnaz [x] Believes in Prayer [] Reads Bible or Shinto materials [] There are Spiritual issues to be addressed Website Optimization Strategist Interventions [x] Prayer [x] Active listening [x] Non-anxious presence [x] Spiritual/emotional support [] Crisis/trauma care [x] Spiritual counseling [] Bereavement support [] Provided bereavement packet [] Provided Bible/devotional materials [] Provided toy/stuffed animal, coloring book to patient or family member [] Provided Communion [] Anointing/[place] [] Salvation [x] Completed spiritual assessment [] Other: Impact on Illness or Injury [] Angry [] Fearful [x] Anxious [] Often cries [] Exhaustion [] Unable to work [] Unable to attend episcopal [] Unable to walk/stand [] Unable to read [] Unable to drive [] Unable to eat/drink [] Unable to sleep [] Unable to be with family [] Patient intubated [] Other: Summary lower abd pain, Sleepy, in pain Time spent with patient 10mina
[2019-07-17] MEDS: ketorolac 30 mg/mL INJ IVP (12:13)
--- NOTE | 2019-07-17 16:23 | PM.PN ---
Subjective Subjective: Interval history: 38 y/o female with PID by GC and UTI on IV therapy. Referred felling much better than yesterday. Vitals/I&O/Wt Last Vital Signs Temp 98.0 F 07/17/19 15:18 Pulse 75 07/17/19 15:18 Resp 18 07/17/19 15:18 BP 115/79 07/17/19 15:18 Pulse Ox 97 07/17/19 15:18 07/17/19 07/17/19 07/17/19 06:59 14:59 22:59 Intake Total 50 / 250 770 / 770 Output Total 2500 / 2500 Balance -2450 / -2250 770 / 770 Weight last 48 hrs Weight 63.503 kg Physical Exam Const: COMMON NORMALS: no acute distress and patient oriented x3 GENERAL APPEARANCE: cooperative and comfortable ORIENTATION/CONSCIOUSNESS: Yes awake HENMT: COMMON NORMALS: normocephalic, atraumatic, hearing grossly normal bilaterally and moist oral mucous membranes HEAD & SCALP: normocephalic and atraumatic Eye: COMMON NORMALS: Equal, round and reactive pupils present, EOMs intact bilaterally and conjunctivae normal CONJUNCTIVA: Yes conjunctivae normal PUPIL: Yes Equal, round and reactive pupils present Neck/C-Spine: COMMON NORMALS: full ROM GENERAL: Yes normal visual inspection and Yes trachea midline Resp: COMMON NORMALS: normal respiratory effort, No retractions, No use of accessory muscles and clear to auscultation bilaterally EFFORT & INSPECTION: Yes able to speak in complete sentences, Yes symmetric chest movement and No tachypneic AUSCULTATION: clear to auscultation bilaterally Cardio: COMMON NORMALS: regular rate, regular rhythm, S1 normal heart sound present, S2 normal heart sound present and No murmurs present (Cardio) RATE: regular rate RHYTHM: regular rhythm HEART SOUNDS: S1 normal heart sound present and S2 normal heart sound present GI: COMMON NORMALS: Normal to inspection, nondistended, normoactive bowel sounds present, Soft to palpation and non-tender PALPATION: Yes Soft to palpation Extremity: COMMON NORMALS: normal to inspection, full ROM and no clubbing, cyanosis or edema; negative for no pedal edema Neuro: COMMON NORMALS: patient oriented x3, moves all extremities, no focal motor deficits, no sensory deficits noted and gait normal Psych: COMMON NORMALS: mental status grossly normal, Normal thought process present, cooperative, normal affect and speech normal SPEECH: Yes normal speech THOUGHT PROCESS: Normal thought process present Skin: COMMON NORMALS: no rashes or lesions noted, no jaundice, no petechiae and no mottling GENERAL SKIN EXAM: no rashes or lesions noted Data : 07/17/19 05:43 07/17/19 05:43 Other Labs: Laboratory Tests 02/20/19 07/16/19 07/17/19 21:50 09:34 05:43 WBC 8.9 15.3 H 10.5 H Micro: Microbiology 07/16/19 09:35 Urine Culture - Preliminary Urine,Clean Catch Gram Negative Rods 07/16/19 09:40 Blood Culture - Preliminary Blood NEGATIVE TO DATE 07/16/19 09:34 Blood Culture - Preliminary Blood NEGATIVE TO DATE 07/16/19 09:35 Chlamydia trachomatis (CLAY) - Final Urine Random Neisseria gonorrhoeae (CLAY) - Final Trichomonas vaginalis (CLAY - Final 07/16/19 10:52 SHABNAM Preparation - Final Other Source [facility] [address] [place] [id number] BENJIE GARCIA, TANK CREWMEMBER NAME: Justin Conde LOC: MEDSUR U #: [id number] AGE/SX: 38/F ROOM: 259 RE07/16/[address]: Danilo Chaparro MD : 1980 BED: 2 DIS: FAX #: STATUS: ADM IN TLOC: Spec #: [id number] Maximo: 07/16/19 Status: RES Req #: [id number] Recd: 07/16/[address]: Freeman Mckeon DO Src: Urine CC SpDesc: Ordered: UC Procedure Result Verified Site Urine Culture Preliminary 07/17/19 Organism 1 Gram Negative Rods [place] Count 40,000 - 50,000 CFU/ml RESULTS TO FOLLOW [facility] [address] [place] [id number] BENJIE GARCIA, TANK CREWMEMBER NAME: Justin Conde LOC: MEDSUR U #: [id number] AGE/SX: 38/F ROOM: 259 RE07/16/[address]: Danilo Chaparro MD : 1980 BED: 2 DIS: FAX #: STATUS: ADM IN TLOC: Spec #: [id number] Maximo: 07/16/19 Status: COMP Req #: [id number] Recd: 07/16/[address]: Freeman Mckeon DO Src: Ur Random SpDesc: Ordered: CT/GC/TV CLAY Procedure Result Verified Site Chlamydia Trachomatis CLAY Final 07/16/19-140 CT CLAY MAX No Chalmydia trachomatis DNA Detected Neisseria Gonorrhea CLAY Final 07/16/19-140 GC CLAY MAX Neisseria gonorrhoeae DNA Detected CRITICAL RESULT YES/NO: YES CRITICAL CALLED BY: KAYLAN TO AND READ BACK BY: MARYLIN DATE: 07/16/19 TIME: 1407 Trichomonas Vaginalas CLAY Final 07/16/19-1407 TV CLAY MAX No Trichomonas vaginalis DNA Detected Reliable results depend on adequate specimen collection and other variables such as unidentified interfering substances or cross reactivity with genetically closely related organisms or stage of infection. Clinical correlation with history, physical findings, and symptoms is essential. US: Radiologist's impression: [place] [address] Ultrasound Report Signed Patient: Justin Conde #: [id number] : 1980Acct#:[id number] Age/Sex: 38 / FADM Date: 07/16/19 Loc: ERRoom/Bed: Attending Dr: Ordering Provider/Ordering MD: Freeman Mckeon DO Date of Service: 07/16/19 Procedure(s): US pelvic with transvaginal Accession Number(s): [id number] Report Number: [id number] WS: [id number] Pelvic ultrasound, 07/16/2019 Clinical Data: pelvic pain Comparison: None. Findings: The uterus measures 8.0 cm x 4.5 cm x 3.7 cm. The endometrium is 0.7 cm. No intrauterine or abnormal intrauterine mass is seen. The left ovary measures 2.2 cm x 1.5 cm x 1.6 cm with no cysts or masses. The right ovary measures 2.3 cm x 1.2 cm x 1.3 cm with no cysts or masses. US/US pelvic with transvaginal Impression: Negative pelvic ultrasound. A&P Assessment and plan (1) Pelvic inflammatory disease: Patient with parenteral therapy for 24 hours and improving. Still refers some discomfort but not as bad as yesterday. White cell count was decreased. She has been afebrile and hemodynamically stable. Plan: Continue with IV therapy. Status: Acute (2) UTI (urinary tract infection): Status: Acute Qualifiers: Urinary tract infection type: acute cystitis Hematuria presence: without hematuria Qualified Code(s): N30.00 - Acute cystitis without hematuria (3) Gonorrhea: Status: Acute Attestations Medical Necessity Statement*: In my professional opinion per admitting diagnosis. Coding Level of Care Code Acute [place] Attacher for [facility] Fwd Diagnoses Pelvic inflammatory disease N73.9 UTI (urinary tract infection) N30.00 Urinary tract infection type: acute cystitis Hematuria presence: without hematuria Gonorrhea A54.9
[2019-07-17] MEDS: HYDROcodone-acetaminophen 5-325 mg Tablet 1 TAB PO ×2 (16:51→20:57)
--- NOTE | 2019-07-17 18:57 | P.PN_ITS ---
Subjective Subjective: Interval history: Patient seen and examined, looks and reports feeling much better today, denies dysuria, has been able to void multiple times and urine has cleared up. Denies vaginal discharge today. Has been afebrile, hemodynamically stable. Requesting stool softener. Decreased pelvic pressure today. AM labs noted, decreasing leukocytosis, hepatitis C antibody positive. Had 2500 mL urine output overnight. Medications: Reviewed: Yes Medication Review Details: Active Medications Generic Name Dose Route Start Last Admin Trade Name Freq PRN Reason Stop Dose Admin Hydrocodone Bitart /Acetaminophen 1 tab 07/17/19 16:14 07/17/19 16:51 [place] 5-325 Mg PO 1 tab Q4H PRN Administration MODERATE PAIN Doxycycline Monohy drate 100 mg 07/16/19 21:00 07/17/19 18:31 Vibramycin PO 100 mg BID CHINO Administration Ampicillin Sodium/ Sulbactam 50 mls @ 100 mls/ hr 07/16/19 21:00 07/17/19 15:07 Sodium 3 gm/ Sod ium Chloride IV 100 mls/hr Q6H CHINO Administration Protocol Ketorolac Trometha mine 30 mg 07/16/19 20:57 07/17/19 12:13 Toradol IVP 07/21/19 20:56 30 mg Q6H PRN Administration MODERATE PAIN Morphine Sulfate 2 mg 07/16/19 12:54 07/17/19 13:27 Morphine IVP 2 mg Q4H PRN Administration SEVERE PAIN Nicotine 1 patch 07/16/19 14:29 07/17/19 09:09 Nicoderm 21 Mg P atch TRANSDERMA 1 patch DAILY CHINO Administration Ondansetron HCl 4 mg 07/16/19 12:54 Zofran IVP Q6H PRN NAUSEA AND VOMITI NG Senna/Docusate Sod ium 1 tab 07/17/19 18:55 Senna-S PO BID CHINO Zolpidem Tartrate 10 mg 07/16/19 21:00 07/16/19 20:44 Ambien PO 10 mg BEDTIME CHINO Administration No Known Allergies Allergy (Verified 07/16/19 09:00) Vitals/I&O/Wt Last Vital Signs Temp 98.0 F 07/17/19 15:18 Pulse 75 07/17/19 15:18 Resp 18 07/17/19 15:18 BP 115/79 07/17/19 15:18 Pulse Ox 97 07/17/19 15:18 07/17/19 07/17/19 07/17/19 06:59 14:59 22:59 Intake Total 50 / 250 770 / 770 480 / 1250 Output Total 2500 / 2500 Balance -2450 / -2250 770 / 770 480 / 1250 Weight last 48 hrs Weight 63.503 kg Physical Exam Const: COMMON NORMALS: no acute distress, patient oriented x3 and alert GENERAL APPEARANCE: cooperative and comfortable; not anxious ORIENTATION/CONSCIOUSNESS: Yes awake HENMT: COMMON NORMALS: normocephalic, atraumatic, hearing grossly normal b ilaterally and moist oral mucous membranes HEAD & SCALP: normocephalic and atraumatic Eye: COMMON NORMALS: Equal, round and reactive pupils present, EOMs intact bilaterally and conjunctivae normal CONJUNCTIVA: Yes conjunctivae normal PUPIL: Yes Equal, round and reactive pupils present Neck/C-Spine: COMMON NORMALS: full ROM GENERAL: Yes normal visual inspection and Yes trachea midline Resp: COMMON NORMALS: normal respiratory effort, No retractions, No use of accessory muscles and clear to auscultation bilaterally EFFORT & INSPECTION: Yes able to speak in complete sentences, Yes symmetric chest movement and No tachypneic AUSCULTATION: clear to auscultation bilaterally Cardio: COMMON NORMALS: regular rate, regular rhythm, S1 normal heart sound present, S2 normal heart sound present and No murmurs present (Cardio) RATE: regular rate RHYTHM: regular rhythm HEART SOUNDS: S1 normal heart sound present and S2 normal heart sound present GI: COMMON NORMALS: Normal to inspection, nondistended, normoactive bowel sarah nds present, Soft to palpation and non-tender INSPECTION: Yes central obesity PALPATION: Yes Soft to palpation and No Tenderness to palpation present (GI) : COMMON NORMALS: Yes no CVA tenderness BLADDER/KIDNEY EXAM: Yes no CVA tenderness Back/Pelvis: COMMON NORMALS: no CVA tenderness Extremity: COMMON NORMALS: normal to inspection, full ROM, no clubbing, cyanosis or edema and no pedal edema Neuro: COMMON NORMALS: patient oriented x3, moves all extremities, no focal motor deficits, no sensory deficits noted and gait normal SENSORIUM/ORIENTATION: Yes alert Psych: COMMON NORMALS: mental status grossly normal, Normal thought process present, cooperative, normal affect and speech normal SPEECH: Yes normal speech THOUGHT PROCESS: Normal thought process present Skin: COMMON NORMALS: no rashes or lesions noted, no jaundice, no petechiae and no mottling GENERAL SKIN EXAM: no rashes or lesions noted Data : 07/17/19 05:43 07/17/19 05:43 Micro: Microbiology 07/16/19 09:35 Urine Culture - Preliminary Urine,Clean Catch Gram Negative Rods 07/16/19 09:40 Blood Culture - Preliminary Blood NEGATIVE TO DATE 07/16/19 09:34 Blood Culture - Preliminary Blood NEGATIVE TO DATE 07/16/19 09:35 Chlamydia trachomatis (CLAY) - Final Urine Random Neisseria gonorrhoeae (CLAY) - Final Trichomonas vaginalis (CLAY - Final A&P Assessment and plan (1) Pelvic inflammatory disease: -noted to be positive for N. gonorrhea; negative for Chlamydia and Tr ichomonas -SHABNAM prep negative -received doxycycline, Unasyn and Ceftriaxone doses in ED; will continue doxycycline (no IV available per pharmacy) and Unasyn -noted decreased leukocytosis, continue to trend WBC -pain control as needed -imaging noted including pelvic US, CT A/P -clinical suspicion for possible tubo-ovarian abscess if suboptimal response to IV antibiotics -b-hCG negative, LMP-07/11/19 -female sexual partners though denies recent sexual activity x 5 months; safe sexual practices recommended -OB-Psychology Lecturer Dr. Chaparro is attending Status: Acute (2) Gonorrhea: -NG + -treatment as noted above Status: Acute (3) UTI (urinary tract infection): -UA indicative of infection -blood cx: prelim negative -urine cx: GNRs, pending ID & sensitivity -on IV antibiotics Status: Acute Qualifiers: Urinary tract infection type: acute cystitis Hematuria presence: with out hematuria Qualified Code(s): N30.00 - Acute cystitis without hematuria (4) Syphilis: -previously treated for RPR with noted chancroid in 01/2019 Status: Chronic Additional A&P Information -noted to be hep C antibody +; quant pending -noted LFTs elevation; trending down -Chronic smoker; 3/4 PPD; nicotine replacement therapy -prior documentation of THC and methamphetamines abuse; denies recent use, UDS positive for amphetamines, monitor for withdrawal -regular diet as tolerated; add bowel regimen -low risk for DVT, encourage ambulation as tolerated -Dispo: home -Code status: FULL code Attestations Medical Necessity Statement*: Patient requires hospitalization for continued IV antibiotic treatment for pelvic inflammatory disease and UTI pending urine culture results. Time Spent in Patient Care: 16 - 35 minutes (>than 50% of time spent in counselling and/or direct pt care on unit) . Coding Level of Care Code Acute Artificial Foliage Arranger for g Fwd Diagnoses Pelvic inflammatory disease N73.9 Gonorrhea A54.9 UTI (urinary tract infection) N30.00 Urinary tract infection type: acute cystitis Hematuria presence: without hematuria Syphilis A53.9
[2019-07-17] MEDS: sennosides-docusate Tablet 1 TAB PO (20:57)
[2019-07-18] VITALS: BP 123/73; PULSE 84; RESP 20; TEMP 37; O2SAT 94
[2019-07-18] MEDS: ampicillin-sulbactam 3 GM in sodium chloride 0.9% (plus) 50 ML IV ×3 (02:35→14:26)
[2019-07-18 04:00] VITALS: BP 116/76; PULSE 71; RESP 20; TEMP 36.6; O2SAT 97
[2019-07-18 07:17] VITALS: BP 108/70; PULSE 70; RESP 18; TEMP 36.8; O2SAT 98
[2019-07-18] MEDS: nicotine 21 mg Patch 1 PATCH TRANSDERMA (08:21)
[2019-07-18] MEDS: doxycycline 100 mg Tablet PO (08:22)
[2019-07-18] MEDS: HYDROcodone-acetaminophen 5-325 mg Tablet 1 TAB PO ×2 (08:22→13:01)
[2019-07-18] MEDS: sennosides-docusate Tablet 1 TAB PO (08:22)
[2019-07-18 10:52] VITALS: BP 113/78; PULSE 69; RESP 18; TEMP 36.8; O2SAT 98
--- NOTE | 2019-07-18 10:57 | P.PN_ITS ---
Subjective Subjective: Interval history: Hemodynamically stable, remains afebrile, feels much better and is quite eager to go home today. Has some residual pelvic pressure but otherwise feels well. Denies dysuria, vaginal discharge. Wants to return to work tomorrow. Medications: Reviewed: Yes Medication Review Details: Active Medications Generic Name Dose Route Start Last Admin Trade Name Freq PRN Reason Stop Dose Admin Hydrocodone Bitart /Acetaminophen 1 tab 07/17/19 16:14 07/18/19 08:22 [place] 5-325 Mg PO 1 tab Q4H PRN Administration MODERATE PAIN Doxycycline Monohy drate 100 mg 07/16/19 21:00 07/18/19 08:22 Vibramycin PO 100 mg BID CHINO Administration Ampicillin Sodium/ Sulbactam 50 mls @ 100 mls/ hr 07/16/19 21:00 07/18/19 09:09 Sodium 3 gm/ Sod ium Chloride IV Infused Q6H CHINO Infusion Protocol Ketorolac Trometha mine 30 mg 07/16/19 20:57 07/17/19 12:13 Toradol IVP 07/21/19 20:56 30 mg Q6H PRN Administration MODERATE PAIN Morphine Sulfate 2 mg 07/16/19 12:54 07/17/19 13:27 Morphine IVP 2 mg Q4H PRN Administration SEVERE PAIN Nicotine 1 patch 07/16/19 14:29 07/18/19 08:21 Nicoderm 21 Mg P atch TRANSDERMA 1 patch DAILY CHINO Administration Ondansetron HCl 4 mg 07/16/19 12:54 Zofran IVP Q6H PRN NAUSEA AND VOMITI NG Senna/Docusate Sod ium 1 tab 07/17/19 18:55 07/18/19 08:22 Senna-S PO 1 tab BID CHINO Administration Zolpidem Tartrate 10 mg 07/16/19 21:00 07/17/19 20:57 Ambien PO 10 mg BEDTIME CHINO Administration No Known Allergies Allergy (Verified 07/16/19 09:00) Vitals/I&O/Wt Last Vital Signs Temp 98.3 F 07/18/19 10:52 Pulse 69 07/18/19 10:52 Resp 18 07/18/19 10:52 BP 113/78 07/18/19 10:52 Pulse Ox 98 07/18/19 10:52 07/17/19 07/18/19 07/18/19 22:59 06:59 14:59 Intake Total 580 / 1350 100 / 100 Balance 580 / 1350 100 / 100 Physical Exam Const: COMMON NORMALS: no acute distress, patient oriented x3 and alert GENERAL APPEARANCE: cooperative and comfortable; not anxious and not ill appearing ORIENTATION/CONSCIOUSNESS: Yes awake HENMT: COMMON NORMALS: normocephalic, atraumatic, hearing grossly normal bilaterally and moist oral mucous membranes HEAD & SCALP: normocephalic and atraumatic Eye: COMMON NORMALS: Equal, round and reactive pupils present, EOMs intact bilaterally and conjunctivae normal CONJUNCTIVA: Yes conjunctivae normal PUPIL: Yes Equal, round and reactive pupils present Neck/C-Spine: COMMON NORMALS: full ROM GENERAL: Yes normal visual inspection and Yes trachea midline Resp: COMMON NORMALS: normal respiratory effort, No retractions, No use of accessory muscles and clear to auscultation bilaterally EFFORT & INSPECTION: Yes able to speak in complete sentences, Yes symmetric chest movement and No tachypneic AUSCULTATION: clear to auscultation bilaterally Cardio: COMMON NORMALS: regular rate, regular rhythm, S1 normal heart sound present, S2 normal heart sound present and No murmurs present (Cardio) RATE: regular rate RHYTHM: regular rhythm HEART SOUNDS: S1 normal heart sound present and S2 normal heart sound present GI: COMMON NORMALS: Normal to inspection, nondistended, normoactive bowel sounds present, Soft to palpation and non-tender INSPECTION: Yes central obesity PALPATION: Yes Soft to palpation and No Tenderness to palpation present (GI) : COMMON NORMALS: Yes no CVA tenderness BLADDER/KIDNEY EXAM: Yes no CVA tenderness Back/Pelvis: COMMON NORMALS: no CVA tenderness Extremity: COMMON NORMALS: normal to inspection, full ROM, no clubbing, cyanosis or edema and no pedal edema Neuro: COMMON NORMALS: patient oriented x3, moves all extremities, no focal motor deficits, no sensory deficits noted and gait normal SENSORIUM/ORIENTATION: Yes alert Psych: COMMON NORMALS: mental status grossly normal, Normal thought process present, cooperative, normal affect and speech normal SPEECH: Yes normal speech THOUGHT PROCESS: Normal thought process present Skin: COMMON NORMALS: no rashes or lesions noted, no jaundice, no petechiae and no mottling GENERAL SKIN EXAM: no rashes or lesions noted Data : 07/17/19 05:43 07/17/19 05:43 Micro: Microbiology 07/16/19 09:35 Urine Culture - Preliminary Urine,Clean Catch Gram Negative Rods 07/16/19 09:40 Blood Culture - Preliminary Blood NEGATIVE TO DATE 07/16/19 09:34 Blood Culture - Preliminary Blood NEGATIVE TO DATE A&P Assessment and plan (1) Pelvic inflammatory disease: -noted to be positive for N. gonorrhea; negative for Chlamydia and Trichomonas -SHABNAM prep negative -received doxycycline, Unasyn and Ceftriaxone doses in ED; will continue doxycycline (no IV available per pharmacy) and Unasyn. Will continue treatment with doxycycline and metronidazole x 14 days -noted decreased leukocytosis, continue to trend WBC -pain control as needed -imaging noted including pelvic US, CT A/P -clinical suspicion for possible tubo-ovarian abscess if suboptimal response to IV antibiotics -b-hCG negative, LMP-07/11/19 -female sexual partners though denies recent sexual activity x 5 months; safe sexual practices recommended -[employer] Dr. 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 Time Spent in Patient Care: 16 - 35 minutes (>than 50% of time spent in counselling and/or direct pt care on unit) . Coding Level of Care Code Acute Senior Director Of Strategy for g Fwd Exam Comprehensive Diagnoses Pelvic inflammatory disease N73.9 Gonorrhea A54.9 UTI (urinary tract infection) N30.00 Hematuria presence: without hematuria Urinary tract infection type: acute cystitis Syphilis A53.9
--- NOTE | 2019-07-18 14:56 | P.DS_ITS ---
Discharge Providers Date of Admission: 07/16/19 11:38 Date of Discharge: July 18, 2019 Attending Provider at Admission: Danilo Chaparro MD Attending Provider at Discharge: Danilo Chaparro MD Diagnoses at Discharge Discharge Diagnosis (1) Pelvic inflammatory disease: Status: Acute Problem details: -noted to be positive for N. gonorrhea; negative for Chlamydia and Trichomonas -SHABNAM prep negative -received doxycycline, Unasyn and Ceftriaxone doses in ED; will continue doxycycline (no IV available per pharmacy) and Unasyn. Will continue treatment with doxycycline and metronidazole x 14 days -noted decreased leukocytosis, continue to trend WBC -pain control as needed -imaging noted including pelvic US, CT A/P -clinical suspicion for possible tubo-ovarian abscess if suboptimal response to IV antibiotics -b-hCG negative, LMP-07/11/19 -female sexual partners though denies recent sexual activity x 5 months; safe sexual practices recommended (2) Gonorrhea: Status: Acute Problem details: -NG + -treatment as noted above (3) UTI (urinary tract infection): Status: Acute Problem details: -UA indicative of infection -blood cx: prelim negative -urine cx: GNRs, pending ID & sensitivity -on IV antibiotics Qualifiers: Urinary tract infection type: acute cystitis Hematuria presence: without hematuria Qualified Code(s): N30.00 - Acute cystitis without hematuria (4) Syphilis: Status: Chronic Problem details: -previously treated for RPR with noted chancroid in 01/2019 Other Information Additional DC diagnoses/information: -noted to be hep C antibody +; quant pending -noted LFTs elevation; trending down -Chronic smoker; 3/4 PPD; nicotine replacement therapy -prior documentation of THC and methamphetamines abuse; denies recent use, UDS positive for amphetamines, monitor for withdrawal Reason for Visit Reason for Visit: Reason For Visit: lower abd pain Hospital Course Hospital Course: Patient was admitted to the medical surgical floor and started on IV antibiotic treatment for pelvic inflammatory disease after being found to be positive for gonorrhea and quite symptomatic with concern for possible right tubo-ovarian abscess. Hospitalist consult was requested due to concern for methamphetamine withdrawal as evidenced by positive urine drug screen. Pain was managed orally and with IV medication as needed. Patient had symptomatic relief within 24 hours of initiation of IV antibiotic treatment. Most of her symptoms have resolved with exception of residual pelvic pressure. She will need to continue to take oral antibiotics for total of 14 days with prescription also provided for analgesics as needed. She is cautioned against taking narcotics while driving or operating heavy machinery particularly in light of her employment in a [employer]. She is to follow-up with Dr. Chaparro in 2 weeks and is referred to Dr. Jaimes to establish PCP care. Of note she was found to be hepatitis C antibody positive and viral load has been requested and is currently pending. She was found to have a urinalysis indicative of infection with antibiotic therapy providing dual coverage for PID and a UTI. Urine cultures so far have grown gram-negative rods, ID and sensitivity are currently pending. She will need to follow-up on these results with either her PCP or Dr. Chaparro. Patient has been counseled on need for safe sex practices. Discharge Summary: -Patient to follow-up with Dr. Chaparro in 2 weeks -Patient to follow-up with Dr. Jaimes to establish PCP and for continued care thereafter. She needs follow up on urine culture results, Hep C viral load results. Physical Exam Const: COMMON NORMALS: no acute distress, patient oriented x3 and alert GENERAL APPEARANCE: cooperative and comfortable; not anxious and not ill appearing ORIENTATION/CONSCIOUSNESS: Yes awake HENMT: COMMON NORMALS: normocephalic, atraumatic, hearing grossly normal bilaterally and moist oral mucous membranes HEAD & SCALP: normocephalic and atraumatic Eye: COMMON NORMALS: Equal, round and reactive pupils present, EOMs intact bilaterally and conjunctivae normal CONJUNCTIVA: Yes conjunctivae normal PUPIL: Yes Equal, round and reactive pupils present Neck/C-Spine: COMMON NORMALS: full ROM GENERAL: Yes normal visual inspection and Yes trachea midline Resp: COMMON NORMALS: normal respiratory effort, No retractions, No use of accessory muscles and clear to auscultation bilaterally EFFORT & INSPECTION: Yes able to speak in complete sentences, Yes symmetric chest movement and No tachypneic AUSCULTATION: clear to auscultation bilaterally Cardio: COMMON NORMALS: regular rate, regular rhythm, S1 normal heart sound present, S2 normal heart sound present and No murmurs present (Cardio) RATE: regular rate RHYTHM: regular rhythm HEART SOUNDS: S1 normal heart sound present and S2 normal heart sound present GI: COMMON NORMALS: Normal to inspection, nondistended, normoactive bowel sounds present, Soft to palpation and non-tender INSPECTION: Yes central obesity PALPATION: Yes Soft to palpation and No Tenderness to palpation present (GI) : COMMON NORMALS: Yes no CVA tenderness BLADDER/KIDNEY EXAM: Yes no CVA tenderness Back/Pelvis: COMMON NORMALS: no CVA tenderness Extremity: COMMON NORMALS: normal to inspection, full ROM, no clubbing, cyanosis or edema and no pedal edema Neuro: COMMON NORMALS: patient oriented x3, moves all extremities, no focal motor deficits, no sensory deficits noted and gait normal SENSORIUM/ORIENTATION: Yes alert Psych: COMMON NORMALS: mental status grossly normal, Normal thought process present, cooperative, normal affect and speech normal SPEECH: Yes normal speech THOUGHT PROCESS: Normal thought process present Skin: COMMON NORMALS: no rashes or lesions noted, no jaundice, no petechiae and no mottling GENERAL SKIN EXAM: no rashes or lesions noted Discharge Data Data Completed and Pending: Completed Studies During Hospitalization Category Date Time Status CT abdomen pelvis w con* [id number] Stat Cat Scan 07/16/19 09:28 Completed US pelvic with tr ansvaginal Urgent Ultrasound 07/16/19 09:25 Completed Pending at discharge Category Date Time Status Blood Culture Sta t Lab 07/16/19 09:40 Results Complete Blood Co unt w/Auto AM LABS Lab 07/18/19 04:00 Ordered Comprehensive Met abolic Panel AM LA BS Lab 07/18/19 04:00 Ordered Hepatitis C RNA V iral Load Qnt Rout ine Lab 07/17/19 05:43 Received Urine Culture Sta t Lab 07/16/19 09:35 Results Vitals: Last Vital Signs Temp 98.3 F 07/18/19 10:52 Pulse 69 07/18/19 10:52 Resp 18 07/18/19 10:52 BP 113/78 07/18/19 10:52 Pulse Ox 98 07/18/19 10:52 Discharge Plan Discharge Patient Disposition: Home, Self-Care Condition: Stable Prescriptions: New hydrocodone-acetaminophen 5-325 mg Tablet 1 tab PO Q4H PRN (Reason: Moderate Pain) Qty: 30 RF: 0 doxycycline monohydrate 100 mg Tablet 100 mg PO BID 14 Days Qty: 28 RF: 0 metronidazole 500 mg tablet 500 mg PO BID 14 Days Qty: 28 RF: 0 sennosides-docusate sodium 8.6-50 mg Tablet 1 tab PO BID PRN (Reason: constipation) 30 Days Qty: 60 RF: 0 Continued Multiple Vitamins Tablet 1 tab PO DAILY RF: 0 ibuprofen 200 mg Tablet 600 mg PO PRN RF: 0 Discharge Orders: Discharge Order (Routine); Ordered 07/18/19 Ordered By: Melissa Wick Referrals: Danilo Chaparro MD [Physician] - 2 weeks (Post hospital discharge follow up) Douglas Jaimes MD [Hospitalist] - 4-7 days (To establish care and post hospital discharge follow up. Treated for PID) Discharge Diet: Regular Discharge Activity: Resume usual activity and May return to work/school without restrictions Discharge Attestations Time Spent in Discharge Care*: greater than 30 min Specific Discharge Activities: Specific discharge activities: educating patient, discussing with pcp/other providers, discussing with case management manager s/social workers/dc planners, documenting/other paperwork and evaluating patient/reviewing data Status at Discharge: Cognitive status at discharge: cognitively intact , Behavioral status at discharge: cooperative , Functional status at discharge: independent ambulation Overall status at discharge: patient is back to baseline Quality Metrics Clinical Quality Measures During this hospital stay, did patient experience: None Coding Level of Care Code Acute Realtime Captioner for Chg Fwd Diagnoses Pelvic inflammatory disease N73.9 Gonorrhea A54.9 UTI (urinary tract infection) N30.00 Urinary tract infection type: acute cystitis Hematuria presence: without hematuria Syphilis A53.9
[2019-07-18] MEDS: fluconazole 100 mg Tablet 150 MG PO (15:33)
[2019-07-18 15:35] VITALS: BP 113/78; PULSE 69; RESP 18; TEMP 36.8; O2SAT 98
[2019-07-18 15:48] LABS: Basophils # 0.1 10^3/uL (0.0-0.1); Basophils % 0.5 %; Eosinophils # 0.1 10^3/uL (0.0-0.8); Eosinophils % 1.1 %; Lymphocytes # 1.6 10^3/uL (0.8-4.8); Lymphocytes % 13.9 %; Mean Corpuscular HGB Conc 31.7 g/dL (30.0-36.0); Mean Corpuscular Hemoglobin 31.5 pg (28.0-34.0); Mean Corpuscular Volume 99.3 fL (81-99); Monocytes # 0.6 10^3/uL (0.2-0.9); Monocytes % 5.3 %; Neutrophils # 9.2 10^3/uL (1.8-7.7); Neutrophils % 78.4 %; Nucleated Red Blood Cells % 0 %; Platelet Count 381 10^3/cmm (130-400); Red Blood Count 4.13 10^6/uL (4.1-5.3); Red Cell Distribution Width 13.5 % (12.1-15.1); White Blood Count 11.7 10^3/uL (4.0-10.0)
[2019-07-18 16:13] LABS: Alanine Aminotransferase 132 U/L (0-33); Albumin Level 3.5 g/dL (3.5-5.2); Alkaline Phosphatase 106 IU/L (35-105); Aspartate Amino Transferase 142 U/L (0-32); Blood Urea Nitrogen 11 mg/dL (6-20); Calcium 9.5 mg/dL (8.5-10.5); Carbon Dioxide 27 mmol/L (22-29); Chloride 103 mmol/L (98-107); Globulin 4.4 g/dL (1.3-4.6); Glomerular Filtration Rate 93.6 mL/min (90-130); Glucose 126 mg/dL (65-115); Osmolality Calculated 290 mOsm/kg (285-295); Sodium 141 mmol/L (136-145); Total Bilirubin 0.3 mg/dL (0.15-1.2); Total Protein 7.9 g/dL (6.6-8.7)
[2019-07-20 21:27] LABS: HEP C RNA Viral Load Quant 7.35 Log IU/mL (NOT DETECTED)
== END 2019-07-18 15:37 | disposition home or self-care (01) | DRG 758 ==
LOC: ER 12:13 → MEDSURG 12:21
PROVIDERS: Family Medicine; Admitting Provider Obstetrics & Gynecology; Visit Provider Obstetrics & Gynecology
DX: N73.9 Female pelvic inflammatory disease, unspecified (principal); A54.9 Gonococcal infection, unspecified; N30.00 Acute cystitis without hematuria; A53.9 Syphilis, unspecified; F17.210 Nicotine dependence, cigarettes, uncomplicated; B19.20 Unspecified viral hepatitis C without hepatic coma; F15.129 Other stimulant abuse with intoxication, unspecified
CPT/HCPCS: 12345; 36415; 74177; 76830; 76856; 80053; 80306; 81001; 81025; 83690; 85025; 86803; 87040; 87077; 87086; 87186; 87210; 87491; 87522; 87591; 87661; 96372; 96375; 99283; J0295; J0696; J1885; J2001; J2270; J2405; J3490; J7050; Q9967

== ENCOUNTER 2019-08-31 12:49 | Emergency (ER) | payer SELFPAY ==
[2019-08-31] VITALS (11 sets, daily range): BP systolic 99–129; BP diastolic 62–89; PULSE 69–103; RESP 16–20; TEMP 36.6–37.3; O2SAT 94–100; BMI 23.6
--- NOTE | 2019-08-31 13:24 | XR_ITS ---
WS: [id number] SACRUM AND COCCYX TECHNIQUE: AP angled and lateral views. HISTORY: Pain/injury COMPARISON: None available. Technically limited evaluation of the sacrum and coccyx. Overlying fecal material obscures bony detai l on the AP projections. No fracture or malalignment. Visualized bony structures are unremarkable. Chronic deformity LEFT femoral head and neck and acetabulum. XR/XR sacrum coccyx min 2V [id number] IMPRESSION: Limited evaluation of the cecum and coccyx. No fracture.
--- NOTE | 2019-08-31 13:25 | CT_ITS ---
WS: [id number] CT LUMBAR SPINE TECHNIQUE: Noncontrast CT of the lumbar spine with coronal and sagittal reformatted images. CLINICAL INFORMATION: INJURY COMPARISON: None. DLP: 1459.[address] scans at [facility] use at least one of these dose optimization techniques: automat ed exposure control; mA and/or kV adjustment per patient size (includes targeted exams where dose is matched to clinical indication); or iterative reconstruction. FINDINGS: Mild lumbar curve. No acute compression. No high-grade central canal stenosis. Minimal annular bulgin g L3-L5. No significant spinal canal foraminal narrowing. No acute fractures. CT/CT lumbar spine wo con* [id number] IMPRESSION: No acute lumbar spine fractures.
--- NOTE | 2019-08-31 13:25 | CT_ITS ---
WS: [id number] CT THORACIC SPINE TECHNIQUE: Noncontrast CT of the thoracic spine with coronal and sagittal reformatted images. CLINICAL INFORMATION: INJURY COMPARISON: None. DLP: 722.[address] scans at [facility] use at least one of these dose optimization techniques: automat ed exposure control; mA and/or kV adjustment per patient size (includes targeted exams where dose is matched to clinical indication); or iterative reconstruction. FINDINGS: Mild thoracic curve. No acute appearing compression fractures. Mild anterior wedging in midthoracic s pine appears chronic with a few endplate Schmorl's nodes. Minimal compression superior endplates at T 3 and T4 appears chronic. No paravertebral edema. No significant spinal canal stenosis. Bibasilar atelectasis. CT/CT thoracic spin wo con* [id number] IMPRESSION: 1. Mild thoracic curve with chronic appearing anterior wedging mid thoracic sp ine. 2. Minimal compression superior endplates of T3 and T4 appears chronic 3. No acute thoracic spine fractures.
--- NOTE | 2019-08-31 13:25 | XR_ITS ---
WS: [id number] PORTABLE CHEST HISTORY: INJURY COMPARISON: 02/20/2019 Lungs are clear and well expanded. No pleural effusion or pneumothorax. Cardiac size: Normal. Mediastinum/Aorta: Normal mediastinum. Resection distal LEFT clavicle. XR/XR chest 1V portable [id number] IMPRESSION: Unremarkable portable chest.
--- NOTE | 2019-08-31 13:25 | CT_ITS ---
WS: [id number] CT CERVICAL SPINE HISTORY: PAIN TECHNIQUE: Contiguous 2.5 mm axial imaging performed through the entire cervical spine. Sagittal and coronal reformats also performed. All CT scans at [facility] use at least one of these do se optimization techniques: automated exposure control; mA and/or kV adjustment per patient size (inc ludes targeted exams where dose is matched to clinical indication); or iterative reconstruction. DLP: 321.83 mGy.cm COMPARISON: 12/11/2014 Normal cervical alignment. Craniocervical junction, atlantodental interval and C1-C2 alignment is nor mal. Mild RIGHT convex curvature cervical spine. C2-C3: Osteophytosis is similar to the prior study. No fracture. C3-C4: Normal. C4-C5: Shallow central disc protrusion. C5-C6: There are mild osteophytic ridging without stenosis. C6-C7: Normal. C7-T1: Normal. Soft tissues are normal. Lung apices are clear. CT/CT cervical spin wo con* [id number] IMPRESSION: Negative cervical spine for fracture.
--- NOTE | 2019-08-31 13:25 | XR_ITS ---
WS: [id number] PELVIS: AP VIEW SUBMITTED HISTORY: INJURY COMPARISON: None available. Deformity of the LEFT femoral neck and head is probably from trauma or dysplasia. The acetabulum is a lso small and sclerotic. XR/XR pelvis 1-2V* [id number] IMPRESSION: No acute pelvic fracture.
--- NOTE | 2019-08-31 13:25 | CT_ITS ---
WS: [id number] CT HEAD NONCONTRAST HISTORY: INJURY TECHNIQUE: Contiguous axial imaging performed through the brain in 2.5 mm imaging. Bone and soft tiss ue windows. Sagittal and coronal reformats reviewed. All CT scans at [facility] use at ast one of these dose optimization techniques: automated exposure control; mA and/or kV adjustment pe r patient size (includes targeted exams where dose is matched to clinical indication); or iterative r econstruction. DLP: 778.5 mGy.cm COMPARISON: 12/11/2014 No acute intracranial hemorrhage, midline shift or mass effect. No atrophy or prior infarcts or herniation. Ventricles: Normal size with no hydrocephalus. No inferior displacement of cerebellar tonsils. Paranasal sinuses: Mild mucoperiosteal thickening ethmoid air cells. Mastoid air cells: Well pneumatized. Calvarium and scalp: No skull fracture. Small hematoma over the RIGHT frontal bone. CT/CT head wo con* [id number] IMPRESSION: Negative head CT.
[2019-08-31 14:07] LABS: Basophils % 0.4 %; Eosinophils # 0.2 10^3/uL (0.0-0.8); Eosinophils % 2.6 %; Hematocrit 38.2 % (37.0-47.0); Hemoglobin 12.3 g/dL (11.5-15.3); Lymphocytes # 1.5 10^3/uL (0.8-4.8); Lymphocytes % 16.1 %; Mean Corpuscular HGB Conc 32.2 g/dL (30.0-36.0); Mean Corpuscular Hemoglobin 30.4 pg (28.0-34.0); Mean Corpuscular Volume 94.3 fL (81-99); Mean Platelet Volume 10.3 fL (7.4-10.4); Monocytes # 0.8 10^3/uL (0.2-0.9); Monocytes % 9.2 %; Neutrophils # 6.4 10^3/uL (1.8-7.7); Neutrophils % 71.3 %; Nucleated Red Blood Cells % 0 %; Platelet Count 300 10^3/cmm (130-400); Red Blood Count 4.05 10^6/uL (4.1-5.3); Red Cell Distribution Width 12.6 % (12.1-15.1)
[2019-08-31 14:19] LABS: HCG, Serum Qual Negative (Negative)
[2019-08-31] MEDS: sodium chloride 0.9% 1,000 ML 100 ML IV (14:26)
[2019-08-31 14:28] LABS: Alanine Aminotransferase 74 U/L (0-33); Albumin Level 3.6 g/dL (3.5-5.2); Alkaline Phosphatase 76 IU/L (35-105); Anion Gap 14.7 (5-19); Aspartate Amino Transferase 68 U/L (0-32); Blood Urea Nitrogen 7 mg/dL (6-20); Calcium 9.2 mg/dL (8.5-10.5); Carbon Dioxide 25 mmol/L (22-29); Chloride 101 mmol/L (98-107); Globulin 3.9 g/dL (1.3-4.6); Glomerular Filtration Rate 111.9 mL/min (90-130); Glucose 103 mg/dL (65-115); Osmolality Calculated 280 mOsm/kg (285-295); Potassium 3.7 mmol/L (3.5-5.1); Sodium 137 mmol/L (136-145); Total Bilirubin 0.3 mg/dL (0.15-1.2); Total Protein 7.5 g/dL (6.6-8.7)
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
[2019-08-31 15:31] LABS: Alcohol Level < 10 mg/dL (0-10)
[2019-08-31 15:56] LABS: Glucose Urine UA Norm (Normal); Ketones Urine Negative (Negative); Protein Urine Neg (Negative); Urine Color Yellow (Yellow); pH Urine 6 (5-7)
[2019-08-31 15:57] LABS: Bilirubin Urine Neg (NEGATIVE); Blood Urine 2+ (Negative); Leukocyte Esterase Urine 1+ (Negative); Nitrate Urine Negative (Negative); Urobilinogen Urine Neg (Negative)
[2019-08-31 16:03] LABS: Add Urine Culture? Yes; Bacteria Urine 4+; Squamous Epithelial Cell Urine 0-4 (0-5); WBC Urine 40-55 /hpf (0-5)
[2019-08-31 16:05] LABS: Amphetamines Screen Urine Positive (Negative); Barbiturates Screen Urine Negative (Negative); Benzodiazepines Screen Urine Positive (Negative); Cocaine Screen Urine Negative (Negative); Opiate Screen Urine Positive (Negative); PCP Screen Urine Negative (Negative); THC Screen Urine Positive (Negative)
[2019-08-31] MEDS: naloxone 0.4 mg/ml SDV IVP ×3 (16:24→16:52)
[2019-08-31] MEDS: cefTRIAXone 1,000 MG in sodium chloride 0.9% (plus) 50 ML 100 MG IV (17:26)
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
[2019-09-01 00:29] VITALS: BP 136/78; PULSE 78; RESP 16; TEMP 36.7
== END 2019-09-01 00:32 | disposition home or self-care (01) ==
PROVIDERS: Emergency Medicine; Emergency Provider Emergency Medicine
DX: M54.5 Low back pain (principal); N39.0 Urinary tract infection, site not specified; F19.10 Other psychoactive substance abuse, uncomplicated; F17.210 Nicotine dependence, cigarettes, uncomplicated
CPT/HCPCS: 12345; 36415; 70450; 71045; 72125; 72128; 72131; 72170; 72220; 80053; 80306; 80307; 81001; 84703; 85025; 87077; 87086; 87186; 96361; 96365; 96375; 99284; J0696; J2310; J7030

== ENCOUNTER 2019-11-08 09:02 | Emergency (ER) | payer SELFPAY ==
[2019-11-08 09:12] VITALS: BP 128/93; PULSE 103; RESP 18; TEMP 37.1; O2SAT 96; BMI 25.0
[2019-11-08 09:47] VITALS: O2SAT 97
--- NOTE | 2019-11-08 09:49 | PC.NURSE ---
pt swabbed for COVID 19- droplet isolation precautions
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
[2019-11-09 18:22] LABS: Quest SARS-CoV-2 RNA NOT DETECTED (NOT DETECTED)
--- NOTE | 2019-11-10 08:57 | PC.NURSE ---
Pt called and notified of negative COVID test.
== END 2019-11-08 09:53 | disposition home or self-care (01) ==
LOC: ER 09:39
PROVIDERS: Emergency Provider Family Medicine
DX: R05 Cough (principal); R50.9 Fever, unspecified; F17.210 Nicotine dependence, cigarettes, uncomplicated
CPT/HCPCS: 12345; 87635; 99281; 99282

== ENCOUNTER 2020-03-11 11:44 | Emergency (ER) | payer SELFPAY ==
[2020-03-11 11:47] VITALS: BP 115/85; PULSE 80; RESP 18; O2SAT 100; BMI 27.9
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
--- NOTE | 2020-03-11 13:12 | DCPLANNER ---
manager trade was asked to schedule a follow up appointment for patient with ortho. manager trade called the ortho clinic, spoke with Mary Alice, gave clinic patients information. manager trade was told that patients information would be printed and reviewed. Clinic will call patient with appointment information.
[2020-03-11 13:18] VITALS: BP 114/79; PULSE 80; RESP 18; O2SAT 100
--- NOTE | 2020-03-14 11:27 | DCPLANNER ---
Patient had a follow up appointment scheduled for 03.13.20 with ortho - patient did attend appointment.
== END 2020-03-11 13:19 | disposition home or self-care (01) ==
PROVIDERS: Emergency Provider Physician Assistant
DX: S42.032A Displaced fracture of lateral end of left clavicle, initial encounter for closed fracture (principal); F17.210 Nicotine dependence, cigarettes, uncomplicated; Y04.2XXA Assault by strike against or bumped into by another person, initial encounter; Y92.149 Unspecified place in prison as the place of occurrence of the external cause
CPT/HCPCS: 12345; 73030; 99281; 99283

== ENCOUNTER → 2020-03-13 09:14 | Outpatient (BNVA) | payer SELFPAY | PROVIDERS: Referring Provider Physician Assistant; Visit Provider Specialist | DX: S42.032A Displaced fracture of lateral end of left clavicle, initial encounter for closed fracture (principal); X58.XXXA Exposure to other specified factors, initial encounter | CPT/HCPCS: 73000 ==